=== PATIENT | male | born 1970 | race Caucasian/White ===

== ENCOUNTER 2021-03-26 12:44 | Outpatient (CLI) | payer BC, SELFPAY ==
[2021-03-26 19:36] LABS: Basophils Absolute Auto 0.1 K/mm3 (0.0-0.1); Eosinophils Absolute Auto 0.1 K/mm3 (0-0.3); Eosinophils Percent Auto 1.3 % (0-4.4); Hematocrit 42.8 % (42.0-52.0); Immature Granulocyte Absolute 0.03 K/mm3 (0.00-0.031); Immature Granulocyte Percent A 0.4 % (0-0.5); Lymphocytes Absolute Auto 2.31 K/mm3 (0.9-3.2); Lymphocytes Percent Auto 27.7 % (18.3-44.2); Mean Corpuscular HGB Conc 32.7 g/dl (32-36); Mean Corpuscular Hemoglobin 35.3 pg (26-34); Mean Corpuscular Volume 107.8 fl (80-100); Mean Platelet Volume 10.8 fl (7.4-10.4); Monocytes Absolute Auto 0.9 K/mm3 (0.1-0.6); Monocytes Percent Auto 10.3 % (2.6-8.5); Neutrophils Percent Auto 59.3 % (45.5-73.1); Platelet Count Result 356 k/mm3 (150-375); Red Blood Count 3.97 M/mm3 (4.6-6.20); Red Cell Distribution Width 12.6 % (11.5-14.5); White Blood Count 8.4 K/mm3 (4.5-10.0)
[2021-03-26 19:44] LABS: Alanine Aminotransferase 72 U/L (4-50); Albumin Level 3.2 g/dL (3.5-5.1); Alkaline Phosphatase 78 U/L (38-126); Anion Gap 7 mmol/L (8-16); Aspartate Amino Transferase 49 U/L (17-59); Bilirubin,Total 0.6 mg/dL (0.2-1.3); Blood Urea Nitrogen 7 mg/dL (9-20); CRP 3.8 mg/dL (<1.0); Calcium 9.1 mg/dL (8.4-10.2); Carbon Dioxide 33 mmol/L (22-30); Chloride 98 mmol/L (98-107); Cholesterol 235 mg/dL (0-200); Estimated Glomerular Filt Rate > 60; Glucose 93 mg/dL (65-110); HDL Direct 29 mg/dL; Potassium 3.2 mmol/L (3.4-5.0); Sodium 138 mmol/L (137-145); Triglycerides 118 mg/dL (<150)
[2021-03-26 19:53] LABS: LDL Cholesterol Direct 173 mg/dL
[2021-03-26 20:13] LABS: Prostate Specific Antigen 0.4 ng/mL (< OR = 4.0)
[2021-03-26 20:31] LABS: Vitamin D 25 Hydroxy < 12.8 ng/mL
[2021-03-26 20:48] LABS: Folic Acid 4.4 ng/mL (2.76->20)
[2021-03-30 04:42] LABS: Insulin Level Total 8.1 uIU/mL (<=19.6)
[2021-03-31 06:20] LABS: C-Peptide 1.88 ng/mL (0.80-3.85); FSH 12.2 mIU/mL (1.6-8.0)
[2021-04-03 01:20] LABS: Testosterone Free 63.6 pg/mL (35.0-155.0); Testosterone Total 624 ng/dL (250-1100)
== END 2021-03-26 12:45 | disposition home or self-care (01) ==
LOC: ANHBWCLAB 12:47
PROVIDERS: PCP Family Medicine; Visit Provider Family Medicine
DX: Z12.5 Encounter for screening for malignant neoplasm of prostate (principal); Z79.899 Other long term (current) drug therapy; D75.1 Secondary polycythemia; R53.83 Other fatigue; I10 Essential (primary) hypertension; R05 Cough; Z82.62 Family history of osteoporosis; J43.9 Emphysema, unspecified; R89.9 Unspecified abnormal finding in specimens from other organs, systems and tissues; N99.89 Other postprocedural complications and disorders of genitourinary system; R35.0 Frequency of micturition
CPT/HCPCS: 36415; 80053; 80061; 82306; 82607; 82746; 83001; 83525; 84153; 84402; 84403; 84443; 84681; 85025; 86140; G0103

== ENCOUNTER 2021-03-28 10:32 | Outpatient (CLI) | payer BC, SELFPAY ==
[2021-03-28 18:12] LABS: Add Urine Microscopic? NO; Appearance Urine Clear (Clear); Bilirubin Urine Negative (Negative); Blood Urine Negative (Negative); Color Urine Yellow (Yellow); Glucose Urine UA Negative (Negative); Ketones Urine Negative (Negative); Leukocyte Esterase Ur Negative LEU/UL (Negative); Nitrate Urine Negative (Negative); Protein Urine Negative (Negative); Specific Grav Ur 1.016 (1.001-1.035); Urobilinogen Urine Negative mg/dL (<2.0)
[2021-03-28 19:56] LABS: IFOB Positive Control Positive; Immunochemical Fecal Occult Bl Positive (N)
== END 2021-03-28 10:33 | disposition home or self-care (01) ==
PROVIDERS: PCP Family Medicine; Visit Provider Family Medicine
DX: R53.83 Other fatigue (principal); R35.0 Frequency of micturition; D75.1 Secondary polycythemia; I10 Essential (primary) hypertension; Z79.899 Other long term (current) drug therapy; Z12.5 Encounter for screening for malignant neoplasm of prostate; R05 Cough; Z82.62 Family history of osteoporosis; J43.9 Emphysema, unspecified; R89.9 Unspecified abnormal finding in specimens from other organs, systems and tissues; N99.89 Other postprocedural complications and disorders of genitourinary system
CPT/HCPCS: 81003; 82274

== ENCOUNTER 2021-04-15 14:59 | Outpatient (CLI) | payer BC, SELFPAY ==
[2021-04-15 20:16] LABS: Alanine Aminotransferase 28 U/L (4-50); Albumin Level 3.6 g/dL (3.5-5.1); Alkaline Phosphatase 91 U/L (38-126); Aspartate Amino Transferase 32 U/L (17-59); Bilirubin,Total 0.3 mg/dL (0.2-1.3)
[2021-04-15 20:19] LABS: Anion Gap 4 mmol/L (8-16); Blood Urea Nitrogen 12 mg/dL (9-20); Calcium 8.9 mg/dL (8.4-10.2); Carbon Dioxide 28 mmol/L (22-30); Chloride 100 mmol/L (98-107); Estimated Glomerular Filt Rate > 60; Glucose 110 mg/dL (65-110); Sodium 132 mmol/L (137-145)
[2021-04-15 20:48] LABS: Hepatitis B Surface Antigen Negative (Negative)
[2021-04-15 20:54] LABS: HAV RESULT Negative (Negative); Hepatitis B Core IgM Result Negative (Negative)
[2021-04-15 21:05] LABS: Hepatitis C Virus Antibody Negative (Negative)
== END 2021-04-15 15:00 | disposition home or self-care (01) ==
LOC: ANHBWCLAB 15:03
PROVIDERS: PCP Family Medicine; Visit Provider Family Medicine
DX: R74.8 Abnormal levels of other serum enzymes (principal); R94.5 Abnormal results of liver function studies; E87.5 Hyperkalemia
CPT/HCPCS: 36415; 80048; 80074; 80076

== ENCOUNTER 2021-06-21 07:53 | Outpatient (CLI) | payer BC, SELFPAY ==
--- NOTE | 2021-07-08 13:42 | WPDSLEEPSTUD ---
Sleep Study Date of Study: 06/21/21 <Glenny Aguillon DO - Last Filed: 07/08/21 14:14> Ordering Provider: Migdalia Stern MD <Glenny Aguillon DO - Last Filed: 07/08/21 14:14> Interpreting Physician: Glenny Aguillon DO <Glenny Aguillon, DO - Last Filed: 07/08/21 14:14> Sleep Study Type: Polysomnogram <Glenny Aguillon DO - Last Filed: 07/08/21 14:14> Height: 1.8 m <Glenny Aguillon DO - Last Filed: 07/08/21 14:14> Weight: 92.533 kg <Glenny Aguillon DO - Last Filed: 07/08/21 14:14> Body Mass Index: 28.4 <Glenny Aguillon DO - Last Filed: 07/08/21 14:14> Neck Circumference (inches): 16 <Glenny Aguillon DO - Last Filed: 07/08/21 14:14> [place]: 0 <Glenny Aguillon DO - Last Filed: 07/08/21 14:14> Reason for Sleep Study Difficulty initiating and maintaining sleep. <Glenny Aguillon DO - Last Filed: 07/08/21 14:14> Sleep History The patient is a 51 y/o male with insomnia, HTN and BPH that was referred toDr. Stern's office due to sleep disturbances. The patient had a sleep study in 2010 that showed mild obstructive sleep apnea syndrome with an AHI of 6.8. He was not started on PAP Therapy at that time. He was morbidly obese when the study was done, BMI was 37.3, and now he has lost 100 lb his BMI is 30.2 however continues to have difficulty initiating and maintaining sleep, says that he stays awake all night. Every 4th night or so when he is extremely tired, he takes 4-5 shots of Tequila and says that this helps him sleep through the night for 6-8 hours. The patient frequently has trouble sleeping has a cold. He denies waking gasping for air throughout the night. He denies having breathing problems at night observed by others. He denies noticing heart palpitations throughout the night. He denies falling asleep during the day and while driving. He denies sleep paralysis, cataplexy and hypnagogic / hypnopompic hallucinations. he denies having nightmares. He constantly has thoughts racing through his mind. He denies feeling sad, depressed or anxious. He denies kicking throughout the night and noticing parts of his body jerk. He denies crawling and aching feelings in his legs as well as leg pain throughout the night. He denies grinding his teeth during sleep as well as morning jaw pain. He denies being bothered by pain during the day and being awakened by pain throughout the night. He he denies waking up feeling stiff in the morning with sore and achy muscles. He goes to bed at 9:00 p.m. on weekdays and 10:00 p.m. on the weekends. he states that he had 3-4 hours of sleep per night. He gets 6 hours of sleep every 3rd or 4th night. He usually wakes up once to use the restroom. He wakes up at 4:00 a.m. on the weekdays and 5:00 a.m. on the weekends. He will lay in bed for 10 minutes after waking. He currently lives with his girlfriend. The patient did not complete the remaining of the sleep/social history. <Glenny Aguillon DO - Last Filed: 07/08/21 14:14> [facility] Past Medical History Medical History: Medical History Emphysema lung Family history of osteoporosis Insomnia (~2009) Other [facility] (current) drug therapy <Glenny Aguillon DO - Last Filed: 07/08/21 14:14> Family History Family History: Family History Other Family history of cardiovascular disease Family history of osteoporosis <Glenny Aguillon DO - Last Filed: 07/08/21 14:14> Social History Social History: Social History Smoking packs per day: 0 Smoking cigarettes per day: 0.0 Years smoked: 30 Smoking pack-years: 0.00 Smoking status: Former smoker Second hand tobacco smoke exposure: Yes Smoking end date: 08/31/11 Alcohol intake: current
[2021-07-08 13:45] VITALS: BMI 28.4
== END 2021-06-22 06:32 | disposition home or self-care (01) ==
LOC: ANHCSM 07:55
PROVIDERS: PCP Family Medicine; Visit Provider Internal Medicine Critical Care Medicine
DX: G47.19 Other hypersomnia (principal); G47.33 Obstructive sleep apnea (adult) (pediatric)
CPT/HCPCS: 95810

== ENCOUNTER 2021-06-21 11:39 | Outpatient (CLI) | payer BC, SELFPAY ==
[2021-06-21 12:26] LABS: EDCOVIDSCREEN Negative (Negative)
== END 2021-06-21 11:40 | disposition home or self-care (01) ==
LOC: ANHSURGERY 11:42
PROVIDERS: PCP Family Medicine; Visit Provider Internal Medicine Critical Care Medicine
DX: Z01.812 Encounter for preprocedural laboratory examination (principal); Z20.822 Contact with and (suspected) exposure to COVID-19
CPT/HCPCS: 87426; C9803

== ENCOUNTER 2022-11-22 00:36 | Observation (INO) | payer SELFPAY ==
[2022-11-22] VITALS (7 sets, daily range): BP systolic 131–144; BP diastolic 87–106; PULSE 72–108; RESP 15–20; TEMP 36.7–37.2; O2SAT 94–100; BMI 27.5
--- NOTE | ~2022-11-22 | US_ITS ---
EXAMINATION: US right upper quadrant DATE: 11/22/2022 11:52 INDICATION: Right upper quadrant pain TECHNIQUE: Multiple grayscale and Doppler ultrasound images of the abdomen were obtained. COMPARISON: None available FINDINGS: The head and body of the pancreas are normal. The pancreatic tail is obscured by bowel gas. The liver is normal with normal echogenicity and echotexture. No surface nodularity. Normal hepatope bobby flow in the main portal vein. There is wall thickening of the gallbladder. Stones and sludge are present in the gallbladder. There is a trace amount of pericholecystic fluid. The gallbladder wall is thickened. The normal common bile duct measures 4 mm. There was no sonographic Lerma sign. IMPRESSION: 1. Sonographic findings consistent with acute cholecystitis. Reviewed, dictated and finalized at location A.
--- NOTE | ~2022-11-22 | CT_ITS ---
EXAMINATION: CT abdomen pelvis w con INDICATION: Right upper quadrant pain TECHNIQUE: Computed tomographic images of the abdomen and pelvis were obtained after the administrati on of 100 cc of Omnipaque 350 intravenous contrast. The dose-length product (DLP) was 607.86 mGy-cm. Automated exposure control and iterative reconstruction technique were employed. COMPARISON: None available FINDINGS: The lung bases are clear. The heart size is normal. The gallbladder is mildly distended. Th ere are minimal wall thickening of the gallbladder. The liver, pancreas, spleen, and adrenal glands a re normal. The kidneys are unremarkable. No pathologically enlarged abdominal or pelvic lymph nodes a re identified. No free intraperitoneal gas or evidence of bowel obstruction. There is mild lumbar spo ndylosis. IMPRESSION: 1. CT findings consistent with acute cholecystitis. Reviewed, dictated and finalized at location A.
[2022-11-22 01:16] LABS: Basophils Absolute Auto 0.1 K/mm3 (0.0-0.1); Basophils Percent Auto 0.7 % (0.2-1.2); Eosinophils Absolute Auto 0.1 K/mm3 (0-0.3); Eosinophils Percent Auto 1.3 % (0-4.4); Hematocrit 41.6 % (42.0-52.0); Hemoglobin 14.2 g/dL (14.0-18.0); Immature Granulocyte Absolute 0.03 K/mm3 (0.00-0.031); Immature Granulocyte Percent A 0.3 % (0-0.5); Lymphocytes Absolute Auto 1.91 K/mm3 (0.9-3.2); Lymphocytes Percent Auto 19.1 % (18.3-44.2); Mean Corpuscular HGB Conc 34.1 g/dl (32-36); Mean Corpuscular Hemoglobin 36.8 pg (26-34); Mean Corpuscular Volume 107.8 fl (80-100); Mean Platelet Volume 10.2 fl (7.4-10.4); Monocytes Absolute Auto 0.8 K/mm3 (0.1-0.6); Monocytes Percent Auto 8.1 % (2.6-8.5); Neutrophils Absolute Auto 7.1 K/mm3 (1.3-6.7); Neutrophils Percent Auto 70.5 % (45.5-73.1); Platelet Count Result 340 k/mm3 (150-375); Red Blood Count 3.86 M/mm3 (4.6-6.20); Red Cell Distribution Width 14.8 % (11.5-14.5)
--- NOTE | 2022-11-22 01:20 | ECG_ITS ---
Measurements Intervals [place] Rate: 79 P: 60 IA: 178 QRS: -38 QRSD: 86 T: 31 QT: 334 QTc: 383 Interpretive Statements SINUS RHYTHM LEFT AXIS DEVIATION POSSIBLE LEFT ATRIAL ENLARGEMENT PATTERN CONSISTENT WITH PULMONARY DISEASE BORDERLINE T WAVE ABNORMALITY- INFERIOR LEADS BASELINE ARTIFACT- I, II, III, AVR, AVL BORDERLINE ECG NO PREVIOUS ECG AVAILABLE FOR COMPARISON Electronically Signed On 11-22-2022 8:26:22 CDT by Tesfaye Green D.O.
--- NOTE | 2022-11-22 01:21 | ED.ABDPAIN ---
HPI - Abdominal Pain General Chief Complaint: Abdominal Pain Stated Complaint: abd pain Time Seen by Provider: 11/22/22 00:56 Source: patient Mode of arrival: ambulatory Limitations: no limitations History of Present Illness HPI narrative: Patient is a 52 y/o male who presents to the ED with c/o RUQ/epigastric pain. Patient reports the pain began around 8:30 PM after eating a cheeseburger at home. He states the pain was very severe and constant at first. Radiated around his entire upper abdomen to his back like a band. He experienced nausea and vomiting associated with the pain. The pain has since improved slightly and is now more intermittent. Patient has not taken anything for pain. He denies any recent diarrhea, constipation, fevers, urinary symptoms, chest pain, difficulty breathing. Denies history of similar pain. Denies previous history of pancreatitis, gallbladder disease. Related Data Allergies Allergy/AdvReac Type Severity Reaction Status Date / Time No Known Allergies Allergy Verified 11/22/22 00:36 Review of Systems Review of Systems: CONSTITUTIONAL: Denies fever, chills, or sweats. CARDIOVASCULAR: Denies chest pain. RESPIRATORY: Denies dyspnea. GASTROINTESTINAL: See HPI. GENITOURINARY: Denies dysuria or hematuria. SKIN: Denies rash or itching. MUSCULOSKELETAL: See HPI. 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 HEAD: Normocephalic, atraumatic. NECK: Supple. No adenopathy, no masses. RESPIRATORY: Airway patent, respirations nonlabored. Clear to auscultation bilaterally, no rales, rhonchi, wheezing. CARDIOVASCULAR: Regular rate and rhythm without murmurs, rubs, or gallops. Radial pulses 2+ and equal bilaterally. ABDOMINAL: Soft, focal tenderness in right upper quadrant, more mild tenderness extending into epigastric region, nondistended, no hepatosplenomegaly. Normoactive BS. MUSCULOSKELETAL: Moves all extremities. Strength/ROM intact without gross deformities. SKIN: Warm, dry, normal color. No rashes. NEURO: A&O X3. Speech clear. Cranial nerves II-XII grossly intact. Steady gait. No ataxic movements. PSYCHIATRIC: Appropriate mood and affect. Normal interaction. Course Vital Signs Vital signs: Vital Signs Temperature 98.1 F 11/22/22 00:38 Pulse Rate 108 H 11/22/22 00:38 Respiratory Rate 20 11/22/22 00:38 Blood Pressure 144/106 H 11/22/22 00:38 Pulse Oximetry 100 11/22/22 00:38 Oxygen Delivery Room Air 11/22/22 00:38 Temperature 98.1 F 11/22/22 00:38 Pulse Rate 108 H 11/22/22 00:38 Respiratory Rate 19 11/22/22 01:11 Blood Pressure 140/95 H 11/22/22 01:11 Pulse Oximetry 96 11/22/22 01:11 Oxygen Delivery Room Air 11/22/22 00:38 MDM - Abdominal Pain MDM Narrative Medical decision making narrative: Patient presented to ED with sudden onset of epigastric/RUQ pain after eating a cheeseburger tonig
[2022-11-22 01:38] LABS: Alanine Aminotransferase 37 U/L (6-50); Albumin Level 3.2 g/dL (3.5-5.1); Alkaline Phosphatase 100 U/L (38-126); Anion Gap 5 mmol/L (8-16); Aspartate Amino Transferase 70 U/L (17-59); Bilirubin,Total 0.9 mg/dL (0.2-1.3); Blood Urea Nitrogen 6 mg/dL (9-20); Carbon Dioxide 28 mmol/L (22-30); Chloride 106 mmol/L (98-107); Estimated CRCL calculation 150 ml/min; Estimated Glomerular Filt Rate > 60; Glucose 122 mg/dL (65-110); Lipase 183 U/L (23-300); Sodium 139 mmol/L (137-145)
[2022-11-22 01:44] LABS: Anisocytosis 2+ (NORMAL); Macrocytosis 3+ (NORMAL); Platelet Estimate Adequate (Adequate)
[2022-11-22 01:45] LABS: Stomatocytes 1+ (NORMAL)
[2022-11-22 01:46] LABS: Schistocytes None Seen (NORMAL); Tear Drop Cells 1+ (NORMAL)
[2022-11-22] MEDS: SODIUM CHLORIDE 0.9% IV 1,000 ML 999 ML IV CONT (02:18)
[2022-11-22] MEDS: ONDANSETRON INJ 4 MG/2 ML VIAL IV PUSH ×2 (02:19→05:55)
[2022-11-22] MEDS: MORPHINE SULFATE (*CRX) 4 MG/ML INJ IV PUSH ×2 (02:19→05:57)
[2022-11-22] MEDS: POTASSIUM CHLORIDE 20 MEQ TABLET 40 MEQ PO (02:20)
--- NOTE | 2022-11-22 02:54 | PC.NURSE ---
pt. asked x 3 for urine sample. states he cannot urinate at this time.
[2022-11-22] MEDS: PIPERACILLN/TAZ 3.375GM/NS50ML 3.375 GM/50 ML BAG IVPB ×3 (03:13→13:07)
--- NOTE | 2022-11-22 03:28 | PC.NURSE ---
0327: Report received from Angela MTZ. Expressed concern about pateint's BP 147/105. RN states ER physcian is aware and not concerned and no intervention will be implemented.
[2022-11-22 03:57] LABS: Appearance Urine Clear (Clear); Bilirubin Urine Negative (Negative); Blood Urine Negative (Negative); Color Urine Yellow (Yellow); Glucose Urine UA Negative (Negative); Ketones Urine Negative (Negative); Leukocyte Esterase Ur Negative LEU/UL (Negative); Nitrate Urine Negative (Negative); Protein Urine Negative (Negative)
--- NOTE | 2022-11-22 03:59 | ADMGEN ---
This patient, Brett Baker, was admitted to Medical Room 344-01. Patient/family oriented to hospital policies and general routines including ID bracelet, bed and alarms, visiting hours, pain management, procedures, bathroom and other care routines, personal items, smoking policy, room service/diet, and visiting hours. Information on how to activate the Rapid Response Team has been discussed. Patient/Family are encouraged to report perceived risks to care and to ask questions if they do not understand what they are told or what they should do.
[2022-11-22] MEDS: SODIUM CHLORIDE 0.9% IV 1,000 ML 125 ML IV CONT (04:00)
[2022-11-22 04:22] LABS: Specific Grav Ur 1.059 (1.001-1.035)
[2022-11-22 04:24] LABS: Add Urine Microscopic? NO
--- NOTE | 2022-11-22 11:27 | PM.IMHP ---
H&P: HPI History of Present Illness Date/Time: 11/22/22 11:27 Chief Complaint: Acute cholecystitis Narrative: The patient is a 52-year-old male presenting to the emergency department complaining of severe upper abdominal pain. The patient reports the pain started acutely at about 830 last night and was sharp and stabbing in nature. The patient reports the pain is localized to the epigastric, right upper quadrant. The patient reports associated nausea, bloating. The patient reports less severe episodes in the past. Workup in the emergency department, including imaging, was significant for acute cholecystitis. Review of Systems Constitutional: Constitutional: Reports as per HPI, Reports anorexia, Denies chills, Denies fever(s), Denies lethargy, Reports malaise, Reports poor appetite, Denies weakness, Denies weight gain and Denies weight loss Eyes: Eyes: Reports no additional eye complaints ENT: Reports system reviewed and no additional complaints, except as documented Cardiovascular: Cardiovascular: Reports no additional cardiovascular complaints Respiratory: Respiratory: Reports no additional respiratory complaints Gastrointestinal: Gastrointestinal: Reports as per HPI, Reports abdominal pain, Reports bloating, Reports GI cramping, Reports early satiety, Reports nausea, Denies vomiting and Denies hematemesis Genitourinary: Genitourinary: Reports no additional male genitourinary complaints Musculoskeletal: Musculoskeletal: Reports no additional musculoskeletal complaints Integumentary/Breasts: Skin/Breast: Reports system reviewed and no additional complaints, except as docu Neurologic: Reports system reviewed and no additional complaints, except as documented Psychiatric: Psychiatric: Reports no additional psychiatric complaints Endocrine: Endocrine: Reports no additional endocrine complaints Hematologic/Lymphatic: Hematologic/Lymphatic: Reports no additional hematologic/lymphatic complaints Allergic/Immunologic: Allergic/Immunologic: Reports no additional allergic/immunologic complaints [facility] Past Medical History Medical History BPH (benign prostatic hyperplasia) Emphysema lung Family history of osteoporosis Hypertension Insomnia (~2009) LYDIA (obstructive sleep apnea) 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 Surgical 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 Surgical History History of appendectomy Family History Family History Other Family history of cardiovascular disease Family history of osteoporosis Social History Social History Smoking packs per day: 1 Smoking cigarettes per day: 20.0 Years smoked: 30 Smoking pack-years: 30.00 Smoking status: Current every day smoker Second hand tobacco smoke exposure: Yes Smoking end date: 08/31/11 Alcohol intake: former Drinks per week: 20 Substance use: never Lack of Transportation: No Lack of Food: Never True Current Housing: I Have Housing Concerned About Future Housing: No Difficulty Paying Gas/Electric Bills: No Difficulty Paying for Meds: No Currently Unemployed: No Education: Decline to Answer Difficulty w/ Childcare or Family Care: No Spiritual care concerns: No Meds Home Medications and Allergies Home Medications Medication Instructions Recorded Confirmed Type acetaminophen 325 mg tablet 650 mg PO PRN PRN Pain 11/22/22 11/22/22 History (Tylenol) losartan 50 mg-hydrochlorothiazide 1 tablet PO QHS 11/22/22 11/22/22 History 12.5 mg tablet tamsulosin 0.4 mg capsule (Flomax) 0.4 mg PO QHS 11/22/22 11/22/22 History Allergies Allergy/AdvReac Type Severity Reaction Status Date / Time No Known Allergies Allergy Verified 11/22/22 04:54 Vital Signs Vital Signs - 24 hr 11/22/22 00:38 11/22/22 01:11 11/22/22
--- NOTE | 2022-11-23 10:10 | PM.DS ---
DS: Admitting Diagnosis Discharge Date 11/22/22 Admitting Diagnosis Acute cholecystitis DS: Discharge Diagnosis Discharge Diagnosis (1) Acute cholecystitis: Code(s): K81.0 - Acute cholecystitis Status: Acute Assessment and Plan: exam benign, tolerating low-fat diet, will schedule patient to return to the office this week to schedule interval cholecystectomy (2) Hypertension: Code(s): I10 - Essential (primary) hypertension Status: Acute Assessment and Plan: stable, continue home meds DS: Summary Hospital Course Reason for hospitalization: acute cholecystitis Hospital Course: The patient is a 52-year-old male presenting to the emergency department complaining of severe upper abdominal pain, nausea and vomiting. Workup in the emergency department, including imaging, was significant for acute cholecystitis. Given these findings, the patient was admitted to the surgical service and started on IV antibiotics. Upon evaluation of the patient, he reports that he is feeling much improved. On exam, his abdominal pain had completely resolved. Given these findings, the patient was started on a clear liquid diet which would sit slowly advanced to a low-fat diet. The patient was able to tolerate this without issue or recurrence of symptoms. At this point, the patient would like to go home and schedule interval cholecystectomy as outpatient. The patient will be sent home with instructions to continue low-fat diet and follow up with me in 1 week. Status at Discharge Functional status at discharge: independent ambulation Overall status at discharge: patient is progressing back to baseline Time Spent with Patient Time attestation: Total time spent providing and/or coordinating discharge services: Time spent: Less than 30 minutes Exam Const: General: cooperative, comfortable and no acute distress Resp: Auscultation: clear to auscultation bilaterally Cardio: Rate: regular rate Rhythm: regular rhythm GI: Inspection: normal to inspection and non-distended GI Palp: No abdominal tenderness, Yes Soft to palpation, No Tenderness to palpation present (GI), No Guarding due to palpation present (GI) and No Rigid due to palpation Discharge Plan Discharge Attending physician on discharge: Marly Rodney Discharging Clinician: Marly Rodney Anticipated Discharge Date/Time: 11/22/22 18:19 Patient Disposition: Home, Self-Care Activity: as tolerated Diet: low fat Wound Care Instructions: follow printed instructions Patient Instructions: Antibiotic Form, How to Stop Smoking (DC) Stand Alone Forms: General Discharge Information Follow-up/Referrals: Marly Rodney MD [Physician] - 1 Week Discharge Medications: Continued acetaminophen [Tylenol] 325 mg Tablet 650 mg PO PRN PRN (Reason: Pain) losartan-hydrochlorothiazide 50-12.5 mg Tablet 1 tablet PO QHS tamsulosin [Flomax] 0.4 mg capsule 0.4 mg PO QHS Date of admission: 11/22/22 02:30 Primary Care Provider: Lester Forde Admitting Provider: Marly Rodney Attending physician on admission: Marly Rodney Condition: Stable
== END 2022-11-22 18:54 | disposition home or self-care (01) ==
LOC: ANHED 02:20 → ANH3MED 02:37
PROVIDERS: Admitting Provider Surgery; Emergency Provider Physician Assistant; PCP Family Medicine; Visit Provider Surgery
DX: K81.0 Acute cholecystitis (principal); I10 Essential (primary) hypertension; N40.0 Benign prostatic hyperplasia without lower urinary tract symptoms; J43.9 Emphysema, unspecified; G47.00 Insomnia, unspecified; G47.33 Obstructive sleep apnea (adult) (pediatric); F17.210 Nicotine dependence, cigarettes, uncomplicated; F10.90 Alcohol use, unspecified, uncomplicated; Z79.1 Long term (current) use of non-steroidal anti-inflammatories (NSAID); Z79.899 Other long term (current) drug therapy
CPT/HCPCS: 36415; 74177; 76705; 80053; 81003; 83690; 85025; 93005; 96361; 96365; 96366; 96375; 96376; 99285; A9270; G0378; G0379; J2270; J2405; J2543; J7030; Q9967

== ENCOUNTER 2023-07-07 10:21 | Emergency (ER) | payer OTHER, SELFPAY ==
--- NOTE | ~2023-07-07 | XR_ITS ---
EXAMINATION: XR chest 2V DATE: 07/07/2023 12:59 INDICATION: Cough TECHNIQUE: PA and lateral views of the chest are obtained. COMPARISON: None available FINDINGS: There are minimal airspace opacities of the left lung base. No pleural effusion or pneumoth orax. The cardiomediastinal silhouette is normal. There is mild thoracic spondylosis. IMPRESSION: 1. Left basilar airspace opacity, consistent with atelectasis versus pneumonia. Reviewed, dictated and finalized at location L. [facility]
[2023-07-07 10:26] VITALS: BP 145/95; PULSE 110; RESP 18; TEMP 36.4; O2SAT 96
[2023-07-07 10:59] VITALS: BP 131/81; PULSE 105; RESP 16; O2SAT 95
[2023-07-07 11:13] LABS: Basophils Percent Auto 0.2 % (0.2-1.2); Eosinophils Absolute Auto 0.1 K/mm3 (0-0.3); Eosinophils Percent Auto 0.7 % (0-4.4); Hematocrit 42.3 % (42.0-52.0); Immature Granulocyte Absolute 0.13 K/mm3 (0.00-0.031); Immature Granulocyte Percent A 0.9 % (0-0.5); Lymphocytes Absolute Auto 2.02 K/mm3 (0.9-3.2); Lymphocytes Percent Auto 13.6 % (18.3-44.2); Mean Corpuscular HGB Conc 33.1 g/dl (32-36); Mean Corpuscular Hemoglobin 33.5 pg (26-34); Mean Corpuscular Volume 101.2 fl (80-100); Mean Platelet Volume 9.4 fl (7.4-10.4); Monocytes Absolute Auto 0.9 K/mm3 (0.1-0.6); Monocytes Percent Auto 6.1 % (2.6-8.5); Neutrophils Absolute Auto 11.7 K/mm3 (1.3-6.7); Neutrophils Percent Auto 78.5 % (45.5-73.1); Nucleated Red Blood Cells Perc 0.2 % (0.0-0.2); Platelet Count Result 412 k/mm3 (150-375); Red Blood Count 4.18 M/mm3 (4.6-6.20); Red Cell Distribution Width 21.2 % (11.5-14.5); White Blood Count 14.9 K/mm3 (4.5-10.0)
[2023-07-07 11:22] LABS: Appearance Urine Clear (Clear); Bacteria Urine None Seen /hpf; Bilirubin Urine Negative (Negative); Blood Urine Negative (Negative); Color Urine Yellow (Yellow); Glucose Urine UA Negative (Negative); Ketones Urine Negative (Negative); Leukocyte Esterase Ur Negative LEU/UL (Negative); Nitrate Urine Negative (Negative); Non Pathogenic Casts 0-2; Protein Urine Trace mg/dL (Negative); RBC Urine 0-2 /hpf (0-2); Specific Grav Ur 1.016 (1.001-1.035); Squamous Epithelial Cell Urine None seen /hpf (Few); WBC Urine 0-5 /hpf
[2023-07-07 11:24] LABS: Alanine Aminotransferase 16 U/L (6-50); Albumin Level 3.4 g/dL (3.5-5.1); Alkaline Phosphatase 88 U/L (38-126); Anion Gap 2 mmol/L (8-16); Aspartate Amino Transferase 36 U/L (17-59); Blood Urea Nitrogen 10 mg/dL (9-20); Calcium 8.5 mg/dL (8.4-10.2); Carbon Dioxide 37 mmol/L (22-30); Chloride 93 mmol/L (98-107); Estimated CRCL calculation 148 ml/min; Estimated Glomerular Filt Rate > 60; Glucose 120 mg/dL (65-110); Lipase 41 U/L (23-300); Potassium 3.2 mmol/L (3.4-5.0); Sodium 132 mmol/L (137-145)
[2023-07-07 11:37] LABS: Add Urine Microscopic? YES
--- NOTE | 2023-07-07 12:01 | ED.ABDPAIN ---
HPI - Abdominal Pain General Chief Complaint: Abdominal Pain Stated Complaint: galbladder problems Time Seen by Provider: 07/07/23 11:58 Source: patient and family (mother) History of Present Illness HPI narrative: 53 yo who presents with concern for gallbladder problems. He has been having left upper abdominal pain for 1 week. He has previously been told he has issues with his gallbladder but has been referred to a few surgeons who he can not see because they don't take his insurance. Decreased PO intake and hydration. Feeling nauseated but no vomiting, only dry heaves. Applying ice helps. Pain is in LUQ and radiates to his back, described as stabbing and worse when he coughs. He has had a nonproductive cough for a few days. 9/10 in severity. Constant. He felt warm earlier but denies fevers. Has never had an EGD. LBM this morning. he has had 4 episodes non bloody diarrhea. Passing flatus. No penile discharge. Stayed in bed yesterday. No sick contacts. In addition to the below medications, he states he takes over the [place] potassium. Related Data Home Medications Medication Instructions Recorded Confirmed acetaminophen 325 mg tablet 650 mg PO PRN PRN Pain 11/22/22 11/22/22 (Tylenol) losartan 50 mg-hydrochlorothiazide 1 tablet PO QHS 11/22/22 11/22/22 12.5 mg tablet tamsulosin 0.4 mg capsule (Flomax) 0.4 mg PO QHS 11/22/22 11/22/22 Allergies Allergy/AdvReac Type Severity Reaction Status Date / Time No Known Allergies Allergy Verified 07/07/23 10:31 [facility] Past Medical History Medical History (Updated 07/09/23 @ 02:24 by Tara Taylor MD) Acute cholecystitis BPH (benign prostatic hyperplasia) Emphysema lung Family history of osteoporosis Hypertension Insomnia (~2009) LYDIA (obstructive sleep apnea) 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 Surgical History Surgical History (Updated 07/09/23 @ 02:25 by Tara Taylor MD) History of appendectomy 2003 Family History Family History Other Family history of cardiovascular disease Family history of osteoporosis Social History Social History (Updated 07/09/23 @ 02:28 by Tara Taylor MD) Smoking packs per day: 1 Smoking cigarettes per day: 20.0 Years smoked: 30 Smoking pack-years: 30.00 Smoking status: Current every day smoker Second hand tobacco smoke exposure: Yes Smoking end date: 08/31/11 Alcohol intake: former Drinks per week: 20 Substance use: never Lack of Transportation: No Lack of Food: Never True Current Housing: I Have Housing Concerned About Future Housing: No Difficulty Paying Gas/Electric Bills: No Difficulty Paying for Meds: No Currently Unemployed: No Education: Decline to Answer Difficulty w/ Childcare or Family Care: No Living arrangements: with family Additional living arrangements comments: lives with mother Spiritual care concerns: No Exam Const: General: no acute distress, alert and confusion; No diaphoretic Nutritional Appearance: well nourished Orientation/consciousness: patient oriented x3 Limitations: no limitations HENMT: Head: normal to inspection Other: gross auditory acuity intact; tacky mucous membranes Resp: Effort & Inspection: normal respiratory effort, not labored, no retractions, not tachypneic and no use of accessory muscles Cardio: Rate: tachycardic GI: Inspection: non-distended GI Palp: Yes Soft to palpation, No Tenderness to palpation present (GI), No Guarding due to palpation present (GI), No Rigid due to palpation and No Rebound tenderness present Other: well healed small surgical scar RUQ Skin: General skin exam: normal color Neuro: General: patient oriented x3 and moves all extremities Speech: normal speech Psych: Mental Status: mental status grossly normal Affect: normal affect Attitude: cooperative Course Vital Signs Vital signs: Vital Signs Temp
[2023-07-07 12:05] VITALS: BP 138/96; PULSE 100; RESP 16; O2SAT 95
[2023-07-07] MEDS: POTASSIUM CHLORIDE 20 MEQ PACKET (FOR LIQUID) 40 MEQ PO (12:12)
[2023-07-07] MEDS: SODIUM CHLORIDE 0.9% IV 1,000 ML 999 ML IV CONT (12:13)
[2023-07-07] MEDS: DICYCLOMINE HCL 10 MG CAPSULE PO (12:35)
[2023-07-07] MEDS: MORPHINE SULFATE (*CRX) 4 MG/ML INJ IV PUSH (12:36)
[2023-07-07 12:37] VITALS: BP 145/88; PULSE 100; RESP 16; O2SAT 96
[2023-07-07 13:24] VITALS: BP 126/82; PULSE 101; RESP 15; O2SAT 93
[2023-07-07] MEDS: DOXYCYCLINE HYCLATE 100 MG TABLET PO (13:29)
[2023-07-07 13:44] VITALS: BP 134/89; PULSE 98; RESP 18; O2SAT 98
== END 2023-07-07 13:45 | disposition home or self-care (01) ==
PROVIDERS: Emergency Medicine; Emergency Provider Student in an Organized Health Care Education/Training Program
DX: J18.9 Pneumonia, unspecified organism (principal); J43.9 Emphysema, unspecified; I10 Essential (primary) hypertension; F17.210 Nicotine dependence, cigarettes, uncomplicated
CPT/HCPCS: 36415; 71046; 80053; 81001; 83690; 85025; 96361; 96374; 99284; A9270; J2270; J7030

== ENCOUNTER 2024-01-29 16:30 | Emergency (ER) | payer OTHER, SELFPAY ==
[2024-01-29 16:34] VITALS: BP 124/91; PULSE 97; RESP 18; TEMP 37.1; O2SAT 96
--- NOTE | 2024-01-29 16:42 | ED.SKABFB ---
HPI - Skin/Abscess/Foreign Bdy General Chief complaint: Skin/Abscess/Foreign Body Stated complaint: Facial Swelling Time Seen by Provider: 01/29/24 16:42 Source: patient Mode of arrival: ambulatory Limitations: no limitations History of Present Illness HPI narrative: 53-year-old male presents with complaint of poison vale rash to face. Patient reports that he was exposed to poison vale this week and had rash to neck and ears. Using an [id number] cream to treat poison vale and states neck rash improved. Woke up this a.m. with swelling and redness to face. All systems reviewed and negative except as noted above. Related Data Allergies Allergy/AdvReac Type Severity Reaction Status Date / Time No Known Allergies Allergy Verified 01/29/24 16:38 Review of Systems Review of Systems: CONSTITUTIONAL: Denies fever, chills, or sweats. EYES: Denies visual changes, redness, or discharge. ENT: Denies rhinorrhea, congestion, sore throat, or otalgia. CARDIOVASCULAR: Denies chest pain, palpitations, or edema. RESPIRATORY: Denies cough or dyspnea. GASTROINTESTINAL: Denies abdominal pain, nausea, vomiting, or diarrhea. GENITOURINARY: Denies dysuria or hematuria. SKIN: Reports poison vale rash with itching. MUSCULOSKELETAL: Denies back pain, joint pain, or myalgia. NEUROLOGIC: Denies headache, numbness, or weakness. PSYCHIATRIC: Denies anxiety or depression. All other systems reviewed are negative, except as documented in HPI. 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 Surgical History Surgical History (Updated 07/09/23 @ 02:25 by Tara Taylor MD) History of appendectomy 2004 Family History Family History Other Family history of cardiovascular disease Family history of osteoporosis Social History Social History (Updated 07/09/23 @ 02:28 by Tara Taylor MD) Smoking packs per day: 1 Smoking cigarettes per day: 20.0 Years smoked: 30 Smoking pack-years: 30.00 Smoking status: Current every day smoker Second hand tobacco smoke exposure: Yes Smoking end date: 08/31/11 Alcohol intake: former Drinks per week: 20 Substance use: never Lack of Transportation: No Lack of Food: Never True Current Housing: I Have Housing Concerned About Future Housing: No Difficulty Paying Gas/Electric Bills: No Difficulty Paying for Meds: No Currently Unemployed: No Education: Decline to Answer Difficulty w/ Childcare or Family Care: No Living arrangements: with family Additional living arrangements comments: lives with mother Spiritual care concerns: No Comments At time of signature, agree with nursing past medical, surgical, social and family history. There is no relevant family history pertinent to the presenting complaint. Exam Narrative: GENERAL: This is a well-nourished, well-developed patient, in no apparent distress. HEAD: normocephalic, atraumatic. EYES: PERRL. Sclera clear/white. Vision is grossly intact. EARS: External ears normal NOSE: External nose normal NECK: Neck supple, non-tender without lymphadenopathy, masses or thyromegaly. CARDIOVASCULAR: Regular rate and rhythm without murmurs, gallops, or rubs. RESPIRATORY: Clear to auscultation. Breath sounds equal bilaterally. No wheezes, rales, or rhonchi. SKIN: warm, Dry, intact with rash, good texture and turgor. erythema and swelling around both eyes NEURO: awake, alert, and oriented to person, place and time. There were no obvious focal neurologic abnormalities. EXTREMITIES: No joint tenderness, effusion, or edema noted. Course Course Level of Care: Express Care Visit Vital Signs Vital
[2024-01-29] MEDS: TRIAMCINOLONE ACET INJ 40 MG/ML VIAL IM (16:48)
== END 2024-01-29 17:12 | disposition home or self-care (01) ==
PROVIDERS: Emergency Provider Nurse Practitioner Family; PCP Internal Medicine
DX: L25.5 Unspecified contact dermatitis due to plants, except food (principal); N40.0 Benign prostatic hyperplasia without lower urinary tract symptoms; I10 Essential (primary) hypertension; Z87.891 Personal history of nicotine dependence
CPT/HCPCS: 96372; 99213; G0463; J3301